=== PATIENT | female | born 1965 | race Two or more races ===

== ENCOUNTER → 2016-04-30 | Outpatient (CLI) | payer BC ==
--- NOTE | 2016-05-02 07:37 | MM ---
Reason for exam: screening (asymptomatic). Last mammogram was performed 1 year and 3 months ago. History: Patient is postmenopausal and is nulliparous. Physical Findings: A clinical breast exam by your physician is recommended on an annual basis and results should be correlated with mammographic findings. MG Screening Mammo w CAD Bilateral CC and MLO view(s) were taken. Prior study comparison: January 16, 2015, bilateral MG screening mammo w CAD. July 22, 2013, bilateral digital screening mammo w/CAD. There are scattered fibroglandular densities. No significant changes when compared with prior studies. ASSESSMENT: Negative, BI-RAD 1 RECOMMENDATION: Routine screening mammogram of both breasts in 1 year.
== END | disposition home or self-care (01) ==
LOC: RADMAMWWP 13:57
PROVIDERS: ATTEND Obstetrics & Gynecology
DX: Z12.31 Encounter for screening mammogram for malignant neoplasm of breast (principal)

== ENCOUNTER → 2017-09-04 | Outpatient (CLI) | payer BC ==
--- NOTE | 2017-09-04 08:28 | US ---
EXAMINATION TYPE: US abdomen complete DATE OF EXAM: 09/04/2017 COMPARISON: NONE CLINICAL HISTORY: R74.8 Elevated Liver Enzymes. large body habitus EXAM MEASUREMENTS: Liver Length: 14.8 cm Gallbladder Wall: 0.1 cm CBD: 0.3 cm Spleen: 9.5 cm Right Kidney: 9.2 x 3.7 x 4.9 cm Left Kidney: 9.9 x 5.0 x 4.2 cm Pancreas: Tail obscured by overlying bowel gas Liver: Slight diminished visualization of the portal triads most commonly represents mild hepatic don atosis and limits evaluation for hepatic masses. No focal hepatic masses are seen on today's examinat ion. Gallbladder: wnl Evidence for sonographic Cosme's sign: No CBD: wnl Spleen: wnl Right Kidney: wnl Left Kidney: mid lateral dromedary hump vs mas 1.9 x 1.9 x 1.7 cm Upper IVC: wnl Abd Aorta: wnl The liver is heterogenous and slightly hyperechoic. The intrahepatic portion of the IVC and proximal abdominal aorta are within normal limits. There is no evidence of cholelithiasis. Common bile duct is unremarkable. The visualized portions of the pancreas are homogenous. The spleen is unremarkable . Kidneys are symmetric and free of hydronephrosis. No right renal lesions are seen. IMPRESSION: 1. Sonographic findings most compatible with mild hepatic steatosis. 2. Ill-defined left hypoechoic renal lesion versus dromedary hump. This appears exophytic on the shah sverse images and therefore further evaluation with dynamic three-phase abdominal CT (renal mass prot ocol) is recommended for further evaluation.
== END | disposition home or self-care (01) ==
LOC: RADUSWWP 07:53
PROVIDERS: ATTEND Family Medicine
DX: R93.422 Abnormal radiologic findings on diagnostic imaging of left kidney (principal); R74.8 Abnormal levels of other serum enzymes
CPT/HCPCS: 76700

== ENCOUNTER → 2017-10-02 | Outpatient (CLI) | payer BC ==
[2017-10-02 17:51] LABS: Blood Urea Nitrogen 10 mg/dL (7-17)
--- NOTE | 2017-10-03 08:01 | CT ---
EXAMINATION TYPE: CT abdomen wo/w con DATE OF EXAM: 10/02/2017 HISTORY: Abnormal US. Renal mass. CT DLP: 1929mGycm Automated Exposure Control for Dose Reduction was Utilized. CONTRAST: CT scan of the abdomen is performed with oral and without and with IV Contrast, patient injected with 100 mL of Isovue M300. COMPARISON: Complete abdominal ultrasound September 04, 2017. FINDINGS: LUNG BASES: No significant abnormality is appreciated. LIVER/GB: Liver is noted normal in size. Subcentimeter low dense lesion right hepatic lobe inferiorly series 6 image 33 is too small to further characterize but presumed benign. Contracted gallbladder i s present. PANCREAS: No significant abnormality is seen. SPLEEN: No significant abnormality is seen. ADRENALS: No significant abnormality is seen. KIDNEYS: Noncontrast images show no renal calculi bilaterally. Postcontrast images show symmetric cor tical medullary uptake and excretion without evidence of concerning solid or cystic renal mass or hyd ronephrosis in either kidney. Area of concern left kidney corresponds to lobulated cortical tissue or dromedary hump. BOWEL: Oral contrast does not reach colonic level. There is no suspicious small or large bowel dilata tion seen. Normal-appearing appendix is incidentally noted ascending from the cecum. LYMPH NODES: No greater than 1cm abdominal lymph nodes are appreciated. OSSEOUS STRUCTURES: There is moderate disc space narrowing lumbosacral junction. OTHER: No significant additional abnormality is seen. IMPRESSION: 1. No suspicious solid or cystic renal mass with particular attention to the left kidney at area of u ltrasound concern. Incidental subcentimeter liver lesion not clearly seen on ultrasound. No worrisome intrahepatic mass or intrahepatic ductal dilatation is identified.
== END | disposition home or self-care (01) ==
LOC: RADCTMAIN 17:18
PROVIDERS: ATTEND Family Medicine
DX: R93.5 Abnormal findings on diagnostic imaging of other abdominal regions, including retroperitoneum (principal)
CPT/HCPCS: 82565; 84520; 74170; 36415; Q9967

== ENCOUNTER → 2017-11-21 | Outpatient (CLI) | payer BC ==
--- NOTE | 2017-11-25 14:33 | MM ---
Reason for exam: screening (asymptomatic). Last mammogram was performed 1 year and 7 months ago. History: Patient is postmenopausal and is nulliparous. MG 3D Screening Mammo W/Cad Bilateral CC and MLO view(s) were taken. Prior study comparison: April 30, 2016, bilateral MG screening mammo w CAD. January 16, 2015, bilateral MG screening mammo w CAD. The breast tissue is heterogeneously dense. This may lower the sensitivity of mammography. Focal asymmetry far upper central left breast. ASSESSMENT: Incomplete: need additional imaging evaluation, BI-RAD 0 RECOMMENDATION: Special view mammogram of the left breast.
== END | disposition home or self-care (01) ==
LOC: RADMAMWWP 14:04
PROVIDERS: ATTEND Obstetrics & Gynecology
DX: Z12.31 Encounter for screening mammogram for malignant neoplasm of breast (principal)
CPT/HCPCS: 77063; 77067

== ENCOUNTER → 2017-11-27 | Outpatient (CLI) | payer BC ==
--- NOTE | 2017-11-27 17:41 | MM ---
Reason for exam: additional evaluation requested from abnormal screening. Last mammogram was performed less than 1 month ago. History: Patient is postmenopausal and is nulliparous. Physical Findings: Nurse did not find any significant physical abnormalities on exam. MG 3D Work Up W/Cad LT Spot compression CC, spot compression LM, and LM view(s) were taken of the left breast. Prior study comparison: November 21, 2017, bilateral MG 3d screening mammo w/cad. April 30, 2016, bilateral MG screening mammo w CAD. There is a 4 mm mass at posterior depth within the left breast at 12 o'clock with asymmetry posterior to this on MLO view with associated calcifications. Ultrasound will be performed. ASSESSMENT: Incomplete: need additional imaging evaluation, BI-RAD 0 RECOMMENDATION: Ultrasound of the left breast.
--- NOTE | 2017-12-02 13:05 | USB ---
History: Patient is postmenopausal and is nulliparous. US Breast Workup Limited LT Left limited breast ultrasound including focal area of concern, retroareolar and axilla demonstrates a 1.5 x 1.3 x 0.7 cm oval solid lesion at 12 o'clock likely a lipoma or hemangioma, a 0.4 x 0.3 x 0.3 cm oval solid shadowing, suspicious with associated calcifications lesion at 10 o'clock, and a 0.9 x 1.5 x 0.5 cm oval node cortical thickness 3 mm in the axillary tail. These results were verbally communicated with the patient and result sheet given to the patient on 11/27/17. ASSESSMENT: Highly suggestive of malignancy, BI-RAD 5 RECOMMENDATION: Ultrasound core biopsy of the left breast. Called Dr. Cameron with mammographic findings and has scheduled an appointment for the patient for 12/04/17 at 4:[address] Samaniego. PRELIMINARY REPORT CALLED AND FAXED TO DR. SAMANIEGO ON 11/27/17.
== END | disposition home or self-care (01) ==
LOC: RADMAMWWP 14:53
PROVIDERS: ATTEND Obstetrics & Gynecology
DX: R92.8 Other abnormal and inconclusive findings on diagnostic imaging of breast (principal)
CPT/HCPCS: 77061; 77065

== ENCOUNTER → 2018-01-01 | Outpatient (CLI) | payer BC ==
[2018-01-01 09:43] VITALS: RESP 16; BMI 29.9
--- NOTE | 2018-01-01 10:59 | USB ---
EXAMINATION TYPE: US biopsy breast VAD LT, MG diagnostic mammo LT wo CAD DATE OF EXAM: 01/01/2018 CLINICAL HISTORY: R92.8 Abn mammo. Abnormal ultrasound. TECHNIQUE: Ultrasound guided core biopsy of left breast with clip placement and follow-up two-view ma mmogram. COMPARISON: Prior mammogram and ultrasound November 27, 2017 and older studies FINDINGS: The procedure of ultrasound guided core biopsy was explained to the patient. Benefits, alt ernatives, and risks were discussed. An informed consent was then obtained. The patient was placed in supine positioning for imaging and for the procedure. Preprocedure ultraso und redemonstrates vague 5 mm hypoechoic slightly irregular lesion with some shadowing at 10:00 posit ion in the left breast. The overlying skin was prepped and draped in usual sterile fashion. Lidocain e buffered with bicarbonate was used as anesthetic into the skin. Lidocaine with epinephrine is used as anesthetic into the deeper tissue up to area of concern in the left breast. Under ultrasound guidance, a 12-gauge vacuum assisted biopsy gun device was used to obtain 3 [address]. Following this, a biopsy clip was left in lesion. The patient tolerated the procedure well without any immediate complication. The patient was kept in the radiology department for short stay after the procedure and then discharged home in stable condi tion. Post procedure mammogram shows deployed clip, this correlates with area of original mammogram concern and thus second biopsy under stereotactic guidance is not necessary. IMPRESSION: Successful, uncomplicated ultrasound guided core biopsy of area of concern in the left br east, full pathology results to follow. Intermediate to high index of suspicion noted at time of procedure.
[2018-01-01 11:28] VITALS: BP 118/79; PULSE 65; TEMP 98.3
== END ==
LOC: RADMAMWWP 09:16
PROVIDERS: ATTEND Surgery
DX: R92.8 Other abnormal and inconclusive findings on diagnostic imaging of breast (principal)
CPT/HCPCS: 77065; 19083; A4648; J2001